=== PATIENT | male | born 1945 | race Caucasian/White ===

== ENCOUNTER 2016-12-29 03:06 | Inpatient (IN) ==
--- NOTE | 2016-12-23 11:34 | EKG Report ---
Test Performed on : 12/23/2016 11:12:54 AM Test Reason : PAT Blood Pressure : / mmHG Vent. Rate : 078 BPM Atrial Rate : 078 BPM P-R Int : 192 ms QRS Dur : 104 ms QT Int : 366 ms P-R-T Axes : 069 057 064 degrees QTc Int : 417 ms Normal sinus rhythm. Normal ECG No previous ECGs available Confirmed by Buzz Greene MD ([id number]) on 12/24/2016 7:15:45 AM
[2016-12-23 11:35] LABS: MANUAL DIFF NEEDED? NO; URINE MICRO REVIEW NEEDED? NO; URINE SOURCE CLEAN CATCH
[2016-12-23 11:39] LABS: BASO% 0.6 % (0.0-0.8); EOS# 0.32 X1000 (0.0-0.7); EOS% 3.7 % (0.0-10.0); HEMATOCRIT 40.6 % (42.0-52.0); HEMOGLOBIN 13.2 g/dL (14.0-18.0); IMM GRAN# 0.02 X1000 (0.0-0.04); IMM GRAN% 0.2 % (0.0-0.5); LYMPH# 2.75 X1000 (1.2-3.4); LYMPH% 31.9 % (20.5-51.1); MCH 30.8 PG (27-31); MCHC 32.5 g/dL (33-37); MCV 94.9 FL (81-99); MONO% 9.3 % (1.7-9.3); MPV 10.1 FL (7.4-10.4); NEUT% 54.3 % (42.2-75.2); PLT 306 X1000 (130-400); RBC 4.28 XMIL (4.7-6.1)
[2016-12-23 11:43] LABS: BILIRUBIN URINE NEGATIVE (NEGATIVE); BLOOD URINE NEGATIVE (NEGATIVE); COLOR YELLOW; GLUCOSE URINE 500 mg/dL (NEGATIVE); LEUKOCYTES URINE NEGATIVE (NEGATIVE); NITRITE URINE NEGATIVE (NEGATIVE); PH URINE 5.5; PROTEIN URINE TRACE mg/dL (NEGATIVE); SP GRAVITY URINE 1.021; TURBIDITY URINE CLEAR (CLEAR); UROBILINOGEN URINE NORMAL (NORMAL)
[2016-12-23 11:45] LABS: UR EPITHELIAL CELLS <10 /HPF (<10); URINE BACTERIA NEGATIVE /HPF; URINE RBC <10 /HPF (<10); URINE WBC <10 /HPF (<10)
[2016-12-23 11:52] LABS: INR 0.96; PROTIME 10.1 Seconds (9.2-11.7)
[2016-12-23 12:07] LABS: AGAP 11; BUN 16 mg/dL (8-22); CHLORIDE 103 mmol/L (98-107); COSMO 289; POTASSIUM 4.8 mmol/L (3.5-5.1); SODIUM 141 mmol/L (136-145); TCO2 27 mmol/L (25-35)
[2016-12-29] MEDS ORDERED: REGLAN ONE (06:42)
[2016-12-29] MEDS ORDERED: VANCOMYCIN 1 GM/NS 1 GM/250 ML IVPB ONE ×2 (06:42→07:22)
[2016-12-29] MEDS ORDERED: PEPCID ONE (06:42)
[2016-12-29] MEDS ORDERED: LR 1,000 ML ONE ×2 (06:42→10:38)
[2016-12-29] MEDS ORDERED: COLACE ONE (06:46)
[2016-12-29] MEDS ORDERED: LYRICA ONE (06:47)
[2016-12-29] MEDS ORDERED: CELEBREX ONE (06:47)
[2016-12-29] MEDS ORDERED: NAROPIN 0.5% ONE (06:57)
[2016-12-29] MEDS ORDERED: TORADOL ONE (07:01)
[2016-12-29] MEDS ORDERED: MARCAINE 0.25% PF/EPI 1:200,000 ONE (07:01)
[2016-12-29] MEDS ORDERED: SODIUM CHLORIDE 0.9% ONE (07:02)
[2016-12-29] MEDS ORDERED: NEOSPORIN G.U. IRRIGANT ONE (07:02)
[2016-12-29] MEDS ORDERED: EXPAREL 1.3% ONE (07:02)
[2016-12-29] MEDS ORDERED: CYKLOKAPRON 1,000 MG/NS 1,000 MG/100 ML IVPB ONE (07:02)
[2016-12-29] MEDS ORDERED: VERSED ONE (07:12)
[2016-12-29 08:37] LABS: URINE MICRO REVIEW NEEDED? NO; URINE SOURCE CATH
[2016-12-29 08:47] LABS: BILIRUBIN URINE NEGATIVE (NEGATIVE); BLOOD URINE NEGATIVE (NEGATIVE); COLOR YELLOW; GLUCOSE URINE NEGATIVE (NEGATIVE); LEUKOCYTES URINE NEGATIVE (NEGATIVE); NITRITE URINE NEGATIVE (NEGATIVE); PROTEIN URINE TRACE mg/dL (NEGATIVE); SP GRAVITY URINE 1.022; TURBIDITY URINE CLEAR (CLEAR); UROBILINOGEN URINE 2 mg/dL (NORMAL)
[2016-12-29 08:49] LABS: UR EPITHELIAL CELLS <10 /HPF (<10); URINE BACTERIA NEGATIVE /HPF; URINE RBC <10 /HPF (<10); URINE WBC <10 /HPF (<10)
[2016-12-29] MEDS ORDERED: NS 1,000 ML ONE (10:18)
[2016-12-29] MEDS ORDERED: VENTOLIN HFA ONE (10:37)
[2016-12-29] MEDS ORDERED: NEOSTIGMINE ONE (10:37)
[2016-12-29] MEDS ORDERED: EPHEDRINE ONE (10:38)
[2016-12-29] MEDS ORDERED: QUELICIN (DOSE) ONE (10:38)
[2016-12-29] MEDS ORDERED: DECADRON ONE (10:38)
[2016-12-29] MEDS ORDERED: ROBINUL ONE (10:38)
[2016-12-29] MEDS ORDERED: XYLOCAINE-MPF 2% ONE (10:38)
[2016-12-29] MEDS ORDERED: OFIRMEV 1000 MG/ISOTONIC SOLN 1,000 MG/100 ML BOTTLE ONE (10:38)
[2016-12-29] MEDS ORDERED: ZEMURON ONE (10:38)
[2016-12-29] MEDS ORDERED: CLAVE SECONDARY SET 11953 ONE (10:41)
[2016-12-29] MEDS ORDERED: DILAUDID IV PRN (10:48)
--- NOTE | 2016-12-29 10:51 | Diag Imaging Result Doc PS360 ---
EXAM: SHOULDER-RIGHT HISTORY: Right TKA COMMENT: There are no previous studies available for comparison. There has apparently been recent shoulder arthroplasty. There appears to be normal anatomic alignment. There are no acute fractures. IMPRESSION: Postsurgical changes. Electronically signed by Shawn Luo 12/29/2016 10:49 AM
[2016-12-29] MEDS ORDERED: ZOFRAN PO PRN (11:00)
[2016-12-29] MEDS ORDERED: MILK OF MAGNESIA PO PRN (11:00)
[2016-12-29] MEDS ORDERED: OXY IR PO PRN (11:00)
[2016-12-29] MEDS: CLARITIN PO SCH (11:24)
[2016-12-29] MEDS: TYLENOL PO SCH ×3 (11:25→22:34)
[2016-12-29] MEDS: NS 1,000 ML IV SCH ×2 (11:26→22:33)
--- NOTE | 2016-12-29 11:26 | OPERATIVE NOTE ---
PROCEDURE DATE: 12/29/2016 PREOPERATIVE DIAGNOSIS: Right glenohumeral arthritis. POSTOPERATIVE DIAGNOSIS: Right glenohumeral arthritis. PROCEDURE: Right reverse shoulder arthroplasty with DePuy Delta Xtend size 12 press-fit stem, with DOWD coated modular eccentric epiphysis and a 42+ 6 humeral cup, and a 42 eccentric Glenosphere and a standard metaglene. SURGEON: Michael Thomas MD. AGENT TICKETING GATE: Eduardo Dickson. SECOND LENS GRINDER ROUGH: Fernanda Trimble. ANESTHESIA: General. IV FLUIDS: 1700 mL lactated Ringer's. BLOOD LOSS: Two hundred fifty mmHg. COMPLICATIONS: None. INDICATION: The patient is a 71-year-old male with a chronic history of worsening pain and discomfort of his right shoulder. The pain progressed to affect his activities of daily living. Recommendation to proceed with right reverse shoulder arthroplasty was offered. Risks and benefits of surgery were explained, including the risks of anesthesia, , bleeding, infection, failure to relieve pain, postoperative stiffness, nerve injury, blood clots, and other imponderables. All questions answered. The patient and family wished to proceed with surgery. DETAILS OF OPERATION: The patient was taken to the operating room and placed supine on the operating table. Once adequate anesthesia was obtained, the patient was placed in the left semi- Deshpande beach-chair position. The right shoulder was subsequently prepped and draped in usual sterile fashion. A standard deltopectoral incision was made. Hemostasis was obtained using electrocautery. The deltopectoral interval was then developed and the cephalic vein was retracted with the deltoid. Retractors were then placed. After this had been performed, the subscapularis tendon was then identified. Stay sutures placed. Subscapularis tendon was then released approximately 1 cm medial to the insertion. Then retracted. The patient has significant arthritic changes. Further release of the rotator cuff superiorly was performed. A starting reamer was then passed. Sequential reaming was conducted up to size 12. A size 12 intramedullary guide was then placed in position. The proximal humeral cutting block was pinned in position. The humeral head was then resected. A rongeur was used to remove the inferior osteophytes. Retractor was then placed. Circumferential dissection then performed of the glenoid. The patient had significant eccentric posterior wear. A guide was then placed followed by the guide pin in the proper position. Reaming was then conducted with eccentric reaming due to the posterior wear. After this had been conducted there appeared to be adequate reaming. The wound was copiously with antibiotic pulsatile lavage. The central hole was then drilled and the guide pin was then removed. Copious irrigation was then performed once again with antibiotic pulsatile lavage. A standard metaglene was then placed. Three locking screws and 1 nonlocking screw was placed. Had excellent purchase. A 42 eccentric Glenosphere was then placed with the eccentricity placed inferiorly. Attention was then turned to the proximal humerus where intramedullary guide was placed in position. The proximal humerus was reamed. Copious irrigation was then performed with antibiotic pulsatile lavage. The size 12 press-fit stem, with the modular DOWD coated epiphysis was assembled on the back table and then impacted and then placed in the intramedullary canal. Had excellent purchase. The trial cup size then 42+ 6 had excellent stability and range of motion. The trial cup was removed. Copious irrigation performed once again with antibiotic pulsatile lavage. A 42+ 6 humeral cup was then placed and the shoulder was reduced, carried through range of motion with excellent stability and range of motion. Exparel was placed in the deep soft tissue, as well as subcutaneous tissue. Wounds was copiously irrigated once again. The subscapularis tendon was repaired with #2 FiberWire. Appeared to have good repair and carried through range of motion. The wound was copiously once again. This followed by 2-0 Vicryl and a running 2-0 Prolene. Benzoin and Steri-Strips applied. Adaptic, 4x4s, ABD pad, and tape applied to the right shoulder, followed by a shoulder immobilizer. All counts correct. Patient tolerated the procedure well and was transferred to recovery room in stable condition. cc: Michael Thomas MD
[2016-12-29] MEDS: PRINIVIL PO SCH (11:39)
[2016-12-29] MEDS: PRAVACHOL PO SCH (11:39)
[2016-12-29] MEDS: NEURONTIN PO SCH ×3 (11:40→22:34)
[2016-12-29] MEDS: GLUCOTROL PO SCH (11:40)
[2016-12-29] MEDS: CYMBALTA PO SCH (11:41)
[2016-12-29] MEDS: FLOMAX PO SCH (11:41)
--- NOTE | 2016-12-29 14:21 | HISTORY AND PHYSICAL ---
CHIEF COMPLAINT: Right shoulder pain. HISTORY OF PRESENT ILLNESS: The patient is a 71-year-old white male who has been experiencing right shoulder pain for several years. He states greater than 5 years of severe right shoulder pain. He has tried nonoperative therapy which was unsuccessful. He was seen by Dr. Thomas in the clinic where it was decided to follow through with a right reverse total shoulder arthroplasty. PRIMARY CARE PROVIDER: Dr. Lebron ALLERGIES: Codeine, morphine and penicillin. PAST MEDICAL HISTORY: 1. Osteoarthritis. 2. Degenerative joint disease. 3. Hypertension. 4. Diabetes mellitus type 2. 5. Neuropathy. 6. Benign prostatic hyperplasia. 7. Hyperlipidemia. 8. Chronic tobacco abuse. 9. Chronic obstructive pulmonary disease. PAST SURGICAL HISTORY: 1. Lumbar surgery x3. 2. Tonsils and adenoids. 3. Right ankle open reduction and internal fixation. SOCIAL HISTORY: He is a current smoker, denies alcohol abuse or illicit drug use. He currently lives at home with his . FAMILY HISTORY: Noncontributory. CURRENT MEDICATIONS: Percocet, gabapentin, Flomax, pravastatin, lisinopril, glipizide, loratadine, Cymbalta. REVIEW OF SYSTEMS: HEENT: No known history of stroke or cerebrovascular disease. Denies recent dizzy spells, syncopal events, or interval health change. Cardiac: The patient does have a history of hypertension, but denies coronary artery disease or valvular heart disease, does have hyperlipidemia, denies any chest pain, pressure, or anginal equivalents. Pulmonary: The patient is a smoker, denies recent cough or shortness of breath. Gastrointestinal: He denies any nausea, vomiting, or weight loss. Genitourinary: Denies kidney or bladder infections or dysfunction. Neurological: No weakness, paresthesias or any deficits are noted. He does state that he has numbness to his toes and feet. Musculoskeletal: He does complain of right shoulder pain, no weakness. PHYSICAL EXAMINATION: GENERAL: The patient is resting comfortably at bedside. He is in no acute distress. VITAL SIGNS: Blood pressure is 129/65, respirations are 17 per minute, pulse is 81, SPO2 on 2 L oxygen is 94%. HEENT: Head is normocephalic. His visual marie are intact. He has good corneal light reflex. Pupils are PERRLA. Nares are patent. NECK: Supple. HEART: Regular rate and rhythm. No murmurs, gallops, clicks, or rubs or clicks. LUNGS: He does have scattered expiratory wheezes. His breathing was even and unlabored. ABDOMEN: Round, bowel sounds are present in all quadrants. He is nontender. NEUROLOGICAL: He is alert and oriented x3. He has sensation in all extremities although he does have some numbness and tingling to his toes and feet. MUSCULOSKELETAL: Strength is good to all extremities, positive radial and pedal pulses bilaterally. The right shoulder is tender to palpation. Some loss of range of motion to that right shoulder. IMPRESSION: 1. Right shoulder osteoarthritis. 2. Right shoulder degenerative joint disease. PLAN: 1. Right reverse total shoulder arthroplasty. 2. Nonoperative management of right shoulder has been unsuccessful. The patient has decided to proceed with surgery. The risks and benefits of surgery were explained to the patient including the risk of anesthesia, , bleeding, infection, damage to tendons, ligaments , nerves, blood vessels, possibility of bleeding, blood clots, and other imponderables were discussed with the patient and he wishes to proceed with operative management at this time. Dictated by COURTNEY Fernandes for Michael Thomas MD cc: COURTNEY Fernandes MD [facility]
[2016-12-29] MEDS ORDERED: DIPRIVAN 1% ONE (16:14)
[2016-12-29] MEDS: HUMALOG SUBQ SCH ×3 (17:03→22:35)
[2016-12-29] MEDS ORDERED: VANCOMYCIN 1 GM/NS 1 GM/250 ML IVPB IV ONE (19:00)
[2016-12-29] MEDS ORDERED: HUMALOG SUBQ SCH (21:00)
[2016-12-29] MEDS: COLACE PO SCH (22:34)
[2016-12-29] MEDS: PERIDEX MT SCH (22:34)
[2016-12-30 05:23] LABS: HEMATOCRIT 36.6 % (42.0-52.0); HEMOGLOBIN 12.2 g/dL (14.0-18.0)
[2016-12-30 05:37] LABS: AGAP 10; BUN 17 mg/dL (8-22); CALCIUM 8.1 mg/dL (8.8-10.2); CHLORIDE 103 mmol/L (98-107); COSMO 267; POTASSIUM 4.1 mmol/L (3.5-5.1); SODIUM 134 mmol/L (136-145); TCO2 21 mmol/L (25-35)
[2016-12-30] MEDS: TYLENOL PO SCH (07:06)
[2016-12-30 07:23] VITALS: BP 116/47
--- NOTE | 2016-12-30 07:32 | PROGRESS NOTE ---
DATE: 12/30/2016 SUBJECTIVE: The patient is a pleasant 71-year-old male who is 1 day status post right reverse total shoulder arthroplasty. The patient is currently resting comfortably and has no complaints. OBJECTIVE: On physical exam, the patient's dressing is intact. He is grossly neurovascularly intact. He has some mild paresthesia along the thumb; however, he is grossly neurovascularly intact. He has good sanding supervisor strength. His hemoglobin is 12.2 and hematocrit is 36.6. IMPRESSION: Postop day #1 status post right reverse shoulder arthroplasty. PLAN: We will discontinue his [place] and Hep-Lock his IV. We will also change his dressing. Plan on discharging him home after physical therapy. The patient will call to arrange for outpatient physical therapy. I will see the patient back on 01/11/2017. cc: Michael Thomas MD
[2016-12-30] MEDS ORDERED: PEPCID PO SCH (09:00)
[2016-12-30] MEDS: PRAVACHOL PO SCH (09:05)
[2016-12-30] MEDS: NEURONTIN PO SCH (09:05)
[2016-12-30] MEDS: CLARITIN PO SCH (09:05)
[2016-12-30] MEDS: PERIDEX MT SCH (09:05)
[2016-12-30] MEDS: FLOMAX PO SCH (09:05)
[2016-12-30] MEDS: GLUCOTROL PO SCH (09:06)
[2016-12-30] MEDS: CYMBALTA PO SCH (09:06)
[2016-12-30] MEDS: COLACE PO SCH (09:06)
[2016-12-30] MEDS: PRINIVIL PO SCH (09:07)
== END 2016-12-30 11:22 | disposition home or self-care (01) ==
LOC: SURHOLD 03:06 → 4N 10:29
PROVIDERS: ADMIT Orthopaedic Surgery Adult Reconstructive Orthopaedic Surgery; ATTEND Orthopaedic Surgery Adult Reconstructive Orthopaedic Surgery